=== PATIENT | female | born 1965 | race Caucasian/White ===

== ENCOUNTER 2017-06-27 14:45 | Emergency (ER) | payer BC, OTHER ==
[2017-06-27 14:50] VITALS: BP 170/102
--- NOTE | 2017-06-27 14:54 | ED ---
Throat Pain/Nasal Congestion - HPI Summary HPI Summary: Pt c/o dental pain since this am. Noted swelling of face with redness this afternoon, approx 1 hr ago. States she has had a "bad tooth" for more than a year. Had an appointment with a dentist for definitive care and was unable to keep it. Has taken tylenol for discomfort with some relief. No fever. - History of Current Complaint Chief Complaint: EDDentalPain Time Seen by Provider: 06/27/17 14:54 Hx Obtained From: Patient Onset/Duration: Sudden Onset, Lasting Hours Severity: Mild Cough: None - Allergies/Home Medications Allergies/Adverse Reactions: Allergies Allergy/AdvReac Type Severity Reaction Status Date / Time No Known Allergies Allergy Verified 06/27/17 14:48 PMH/Surg Hx/FS Hx/Imm Hx Previously Healthy: Yes - Surgical History Surgery Procedure, Year, and Place: none Infectious Disease History: No Infectious Disease History: Denies: Traveled Outside the [place] in Last 30 Days - Family History Known Family History: Positive: Hypertension - Social History Occupation: Employed Full-time Alcohol Use: Daily Substance Use Type: Reports: None Smoking Status (MU): Light Every Day Tobacco Smoker Review of Systems Constitutional: Negative Eyes: Negative Positive: Dental Pain Cardiovascular: Negative Respiratory: Negative Gastrointestinal: Negative Positive: Other - redness, swelling right cheek and jaw Neurological: Negative Psychological: Normal All Other Systems Reviewed And Are Negative: Yes Physical Exam Triage Information Reviewed: Yes Vital Signs On Initial Exam: Initial Vitals Temp Pulse Resp BP Pulse Ox 97.4 F 87 16 170/102 97 06/27/17 14:48 06/27/17 14:48 06/27/17 14:48 06/27/17 14:48 06/27/17 14:48 Vital Signs Reviewed: Yes Appearance: Positive: Well-Nourished, Ill-Appearing - mild, Pain Distress - mild Skin: Positive: Warm, Skin Color Reflects Adequate Perfusion, Dry, Erythema @ - right cheek and jaw Head/Face: Positive: Other - redness, swelling right mandible and right cheek ENT: Positive: Pharynx normal Dental: Positive: Percussion Tenderness @ - right upper canine, Cellulitis @ - right upper canine Neck: Positive: Supple, Nontender, No Lymphadenopathy Respiratory/Lung Sounds: Positive: Clear to Auscultation, Breath Sounds Present Cardiovascular: Positive: Normal, RRR, Pulses are Symmetrical in both Upper and Lower Extremities Musculoskeletal: Positive: Strength/ROM Intact Neurological: Positive: Sensory/Motor Intact, Alert, Oriented to Person Place, Time, Facial Symmetry, Speech Normal Psychiatric: Positive: Normal Diagnostics - Vital Signs Vital Signs Temp Pulse Resp BP Pulse Ox 06/27/17 14:48 97.4 F 87 16 170/102 97 - Laboratory Lab Statement: Any lab studies that have been ordered have been reviewed, and results considered in the medical decision making process. EENT Course/Dx - Course Course Of Treatment: with facial redness and swelling and known prior tooth with caries, will treat as possible dental abscess with facial cellulitis. First dose oral antibiotic given in ED so pt may continue to work. She declines pain medication at this time. - Differential Diagnoses Differential Diagnoses: Cellulitis, Dental Abscess, Dental Caries, Odontogenic Pain - Diagnoses Provider Diagnoses: Pain, dental, Facial cellulitis Discharge - Discharge Plan Condition: Stable Disposition: HOME Prescriptions: Cephalexin CAP* [Keflex 500 CAP*] 500 mg PO QID #40 cap Patient Education Materials: Dental Abscess (ED), Cellulitis (ED) Referrals: Non Staff,Doctor [Primary Care Provider] - Additional Instructions: Please follow up with a dentist as soon as possible. We gave your first dose of cephalexin 500mg at 3:00pm. Return to the ER if you have any new or worsening symptoms.
[2017-06-27] MEDS ORDERED: Cephalexin CAP* 500 MG PO ONE (14:55)
== END 2017-06-27 15:12 | disposition home or self-care (01) ==
LOC: ED 14:45
DX: K04.7 Periapical abscess without sinus (principal); L03.211 Cellulitis of face; F17.210 Nicotine dependence, cigarettes, uncomplicated
CPT/HCPCS: 99282; A9270-GY